=== PATIENT | female | born 1980 | race African-American/Black ===

== ENCOUNTER 2017-09-05 16:30 | Emergency (ER) | payer OTHER ==
[~2017-09-05] VITALS: Ht 162.6 cm; Wt 59.0 kg
[2017-09-05 16:32] VITALS: BP 97/62
[2017-09-05] MEDS ORDERED: ZYRTEC10 M2 PO (17:21)
[2017-09-05] MEDS ORDERED: HYDROCODONE-AP1 EAC6 PO (17:21)
== END 2017-09-05 17:43 | disposition home or self-care (01) ==
LOC: ER 16:30
DX: H65.23 Chronic serous otitis media, bilateral (principal); J45.909 Unspecified asthma, uncomplicated; Z91.018 Allergy to other foods

== ENCOUNTER 2018-03-27 21:46 | Emergency (ER) | payer OTHER ==
[~2018-03-27] VITALS: Ht 162.6 cm; Wt 68.5 kg
[~2018-03-27 21:46] MED LIST: HYDROCODONE-AP1 EAC6 PO; ZYRTEC10 M2 PO
[2018-03-27] MEDS ORDERED: TRAMADOL 50 MG50 MG PO (23:20)
[2018-03-27] MEDS ORDERED: MOBIC7.5 MG PO (23:20)
[2018-03-28 00:02] VITALS: BP 107/73
== END 2018-03-28 00:05 | disposition home or self-care (01) ==
LOC: ER 21:46
DX: S29.011A Strain of muscle and tendon of front wall of thorax, initial encounter (principal); J45.909 Unspecified asthma, uncomplicated; Z91.018 Allergy to other foods; X58.XXXA Exposure to other specified factors, initial encounter; Y92.009 Unspecified place in unspecified non-institutional (private) residence as the place of occurrence of the external cause; Y93.89 Activity, other specified; Y99.8 Other external cause status

== ENCOUNTER 2018-04-22 19:27 | Emergency (ER) | payer OTHER ==
[~2018-04-22] VITALS: Ht 162.6 cm; Wt 68.5 kg
[~2018-04-22 19:27] MED LIST changes: +MOBIC7.5 MG PO; +TRAMADOL 50 MG50 MG PO
[2018-04-22] MEDS ORDERED: KEFLEX500 M1 PO (19:48)
== END 2018-04-22 20:06 | disposition home or self-care (01) ==
LOC: ER 19:27
DX: S61.412A Laceration without foreign body of left hand, initial encounter (principal); J45.909 Unspecified asthma, uncomplicated; Z91.018 Allergy to other foods; W26.8XXA Contact with other sharp object(s), not elsewhere classified, initial encounter; Y92.89 Other specified places as the place of occurrence of the external cause; Y93.89 Activity, other specified; Y99.8 Other external cause status

== ENCOUNTER 2018-05-03 02:58 | Emergency (ER) | payer OTHER ==
[~2018-05-03] VITALS: Ht 162.6 cm; Wt 68.5 kg
[~2018-05-03 02:58] MED LIST changes: +KEFLEX500 M1 PO
[2018-05-03 03:02] VITALS: BP 110/67
== END 2018-05-03 03:07 | disposition home or self-care (01) ==
LOC: ER 02:58
DX: S61.412D Laceration without foreign body of left hand, subsequent encounter (principal); X58.XXXD Exposure to other specified factors, subsequent encounter; J45.909 Unspecified asthma, uncomplicated; Z91.02 Food additives allergy status

== ENCOUNTER 2018-08-28 20:13 | Emergency (ER) | payer OTHER ==
[~2018-08-28] VITALS: Ht 167.6 cm; Wt 72.6 kg
[2018-08-28 20:33] VITALS: BP 92/63
[2018-08-28] MEDS ORDERED: SUDOGEST30 MG PO (20:36)
[2018-08-28] MEDS ORDERED: FLONASE 0.05%50 MCG NASAL (20:36)
== END 2018-08-28 21:40 | disposition home or self-care (01) ==
LOC: ER 20:13
DX: H69.93 Unspecified Eustachian tube disorder, bilateral (principal); J06.9 Acute upper respiratory infection, unspecified; J45.909 Unspecified asthma, uncomplicated